=== PATIENT | male | born 1975 | race Two or more races ===

== ENCOUNTER 2022-05-23 06:25 | Day surgery (SDC) | payer OTHER ==
[~2022-05-23] VITALS: Ht 175.3 cm; Wt 88.9 kg
[~2022-05-23 06:25] MED LIST: ODEFSEY TABLET1 EACH PO; TIVICAY50 MG PO
[2022-05-23] MEDS ORDERED: PERCOCET 5-3251 EACH PO (09:40)
== END 2022-05-23 17:40 | disposition home or self-care (01) ==
LOC: CIR.AMB 06:25
PROVIDERS: ATTEND Surgery
DX: K64.4 Residual hemorrhoidal skin tags (principal); K64.8 Other hemorrhoids; K62.5 Hemorrhage of anus and rectum; K62.89 Other specified diseases of anus and rectum; K57.30 Diverticulosis of large intestine without perforation or abscess without bleeding; R19.4 Change in bowel habit; Z20.822 Contact with and (suspected) exposure to COVID-19

== ENCOUNTER 2022-06-19 12:01 | Emergency (ER) | payer OTHER ==
[~2022-06-19] VITALS: Ht 175.3 cm; Wt 79.8 kg
[~2022-06-19 12:01] MED LIST changes: +PERCOCET 5-3251 EACH PO
== END 2022-06-19 13:21 | disposition home or self-care (01) ==
LOC: ER 12:01
DX: K62.89 Other specified diseases of anus and rectum (principal); Z98.890 Other specified postprocedural states